=== PATIENT | female | born 1940 | race Caucasian/White ===

== ENCOUNTER 2021-06-23 14:31 | Emergency (ER) | payer OTHER, BC ==
[~2021-06-23] VITALS: Ht 160 cm; Wt 54.9 kg
[~2021-06-23 14:31] MED LIST: NABUMETONE500 MG PO; PERCOCET 5/3251 TAB PO
[2021-06-23] MEDS ORDERED: TOPROL XL25 M1 (15:12)
[2021-06-23] MEDS ORDERED: AMLODIPINE-OLM1 EACH (15:12)
[2021-06-23] MEDS ORDERED: PLAVIX75 MG (15:14)
[2021-06-23] MEDS ORDERED: LIPITOR20 MG (15:15)
[2021-06-23] MEDS ORDERED: METFORMIN HCL500 M3 (15:15)
[2021-06-23] MEDS ORDERED: GRALISE600 MG (15:15)
[2021-06-23] MEDS ORDERED: DOLOGESIC-DF 51 EACH (15:15)
[2021-06-23] MEDS ORDERED: SYNTHROID75 MCG (15:15)
[2021-06-23] MEDS ORDERED: DICLOFENAC SODI75 MG (15:16)
== END 2021-06-23 17:45 | disposition home or self-care (01) ==
LOC: ER 14:31
DX: M75.31 Calcific tendinitis of right shoulder (principal)

== ENCOUNTER 2025-04-07 11:22 | Emergency (ER) | payer OTHER ==
[~2025-04-07] VITALS: Ht 142.2 cm; Wt 38.6 kg
[~2025-04-07 11:22] MED LIST changes: +AMLODIPINE-OLM1 EACH; +DICLOFENAC SODI75 MG; +DOLOGESIC-DF 51 EACH; +GRALISE600 MG; +LIPITOR20 MG; +METFORMIN HCL500 M3; +PLAVIX75 MG; +SYNTHROID75 MCG; +TOPROL XL25 M1
[2025-04-07] MEDS ORDERED: LANTUS SOL100 UNIT/1 (11:43)
[2025-04-07] MEDS ORDERED: KETOROLAC TROMETHAMINE 30 MG VIAL IU STA (12:05)
[2025-04-07] MEDS ORDERED: ORPHENADRINE CITRATE 30 MG/ML AMPUL IV STA (12:06)
[2025-04-07] MEDS ORDERED: GABAPENTIN 100 MG CAPSULE PO STA (12:06)
[2025-04-07] MEDS ORDERED: TRAMADOL HCL 50 MG TABLET PO STA (12:22)
[2025-04-07] MEDS ORDERED: ACETAMINOPHEN 500 MG GEL..CAP PO STA (12:24)
== END 2025-04-07 14:12 | disposition home or self-care (01) ==
LOC: ER 12:09
DX: M54.89 Other dorsalgia (principal); I10 Essential (primary) hypertension; E11.9 Type 2 diabetes mellitus without complications; Z79.84 Long term (current) use of oral hypoglycemic drugs; Z88.0 Allergy status to penicillin